=== PATIENT | female | born 1985 | race African-American/Black ===

== ENCOUNTER 2017-12-03 20:09 | Emergency (ER) | payer OTHER ==
[~2017-12-03] VITALS: Ht 172.7 cm; Wt 84.0 kg
[2017-12-03 20:21] VITALS: BP 114/80
== END 2017-12-03 22:00 | disposition left against medical advice (07) ==
LOC: ER 21:54
DX: Z53.21 Procedure and treatment not carried out due to patient leaving prior to being seen by health care provider (principal)

== ENCOUNTER 2018-10-21 22:28 | Emergency (ER) | payer OTHER ==
[~2018-10-21] VITALS: Ht 172.7 cm; Wt 87.0 kg
[2018-10-22] MEDS ORDERED: ACETAMINOPHEN 325MG TABLET PO STA (00:57)
[2018-10-22] MEDS ORDERED: SODIUM CHLORIDE 0.9% 1000ML BAG (SEPSIS BOLUS) IV ONE (01:00)
[2018-10-22 01:19] LABS: CHLORIDE 101 mEq/L (98-107)
[2018-10-22 01:21] LABS: INR 1.1; PROTHROMBIN TIME 11.3 sec (9.1-11.1)
[2018-10-22 01:23] LABS: HEMATOCRIT. 41.2 % (36.0-48.0); HEMOGLOBIN. 13.3 g/dL (12.0-16.0); MEAN CORPUSCULAR HEMOGLOBIN 26.3 pg (28.0-32.0); MEAN CORPUSCULAR VOLUME 81.2 fL (81.0-99.0); MEAN PLATELET VOLUME 9.3 fl (7.4-10.4); PLATELET 192 x1000/uL (130-400); RED BLOOD CELL COUNT 5.07 mill/uL (4.2-5.4); RED CELL DISTRIBUTION WIDTH 13.6 % (11.6-14.6)
[2018-10-22 01:47] LABS: HCG SCREEN NEGATIVE
[2018-10-22 01:47] LABS: CLARITY URINE CLEAR (CLEAR); COLOR URINE DARK YELLOW (YELLOW); KETONES URINE 1+ (NEGATIVE); LEUKOCYTE ESTERASE URINE NEGATIVE (NEGATIVE); NITRITE URINE NEGATIVE (NEGATIVE); OCCULT BLOOD URINE NEGATIVE (NEGATIVE); PH URINE 5.5 (4.5-8.0); PROTEIN URINE TRACE (NEGATIVE); SPECIFIC GRAVITY URINE 1.038 (1.005-1.030)
[2018-10-22 02:44] VITALS: BP 121/75
[2018-10-22 02:47] LABS: *AMPHETAMINES SCREEN URINE NEGATIVE (NEGATIVE); *BARBITURATES SCREEN URINE NEGATIVE (NEGATIVE); *BENZODIAZEPINES SCREEN URINE NEGATIVE (NEGATIVE); *COCAINE SCREEN URINE NEGATIVE (NEGATIVE); METHADONE URINE SCREEN NEGATIVE (NEGATIVE); OPIATES URINE SCREEN NEGATIVE (NEGATIVE)
[2018-10-22 02:48] LABS: CANNABINOID URINE SCREEN NEGATIVE (NEGATIVE); PHENCYCLIDINE URINE SCREEN NEGATIVE (NEGATIVE)
[2018-10-22 02:52] LABS: PLATELET ESTIMATE NORMAL
== END 2018-10-22 04:05 | disposition home or self-care (01) ==
LOC: ER 22:28
DX: B34.9 Viral infection, unspecified (principal); R10.0 Acute abdomen
CPT/HCPCS: 36415; 71045; 80053; 80305; 81003; 81025; 83605; 83690; 84145; 84703; 85025; 85610; 87804; 99284; J7030